=== PATIENT | male | born 1980 | race Caucasian/White ===

== ENCOUNTER 2025-05-09 18:48 | Emergency (ER) | payer BC, SELFPAY ==
[2025-05-09 18:50] VITALS: BP 148/96
[2025-05-09 19:09] LABS: Hematocrit 38.6 % (39.0-52.0); Hemoglobin 13.4 g/dL (13.0-18.0); Mean Corp Hgb Conc. 34.7 g/dL (33.0-37.0); Mean Corpuscular Volume 88.9 fL (80.0-94.0); Nucleated Red Blood Cells % 0 % (-); Platelet Count 289 10^3/uL (130-400); Red Cell Dist. Width 12.1 % (11.5-14.5)
[2025-05-09 19:31] LABS: Lipase 117 U/L (23-300)
[2025-05-09 19:32] LABS: ALT (SGPT) 35 U/L (0-50); AST (SGOT) 27 U/L (17-59); Albumin 4.7 g/dl (3.5-5.0); Alkaline Phosphatase 97 U/L (38-126); Blood Urea Nitrogen 20 mg/dl (9-20); Calcium 9.4 mg/dl (8.4-10.2); Carbon Dioxide 27 mmol/L (22-30); Chloride 104 mmol/L (98-107); Glucose 135 mg/dl (70-99); Potassium 4.4 mmol/L (3.5-5.1); Sodium 139 mmol/L (135-145); Total Protein 7.6 g/dl (6.3-8.2); eGFR > 60.00
--- NOTE | 2025-05-09 22:02 | ED.GENMED ---
History of Present Illness
General
Chief Complaint: Abdominal Pain
Source: patient
Exam Limitations: none
Time Seen by Provider: 05/09/25 21:43
History of Present Illness
History of Present Illness:
44yoM with a history of hypertension and seizure disorder presenting for evaluation of abdominal pain. Patient drank soda and ate 2 pieces of pizza last night around 5 PM. He started to experience abdominal discomfort afterwards. He reports
abdominal distention throughout and feels 'like I am about to pop.' He has pain primarily in the center of his abdomen. He is having a hard time belching. No prior history of similar issues in the past. He had a bowel movement earlier today
which was normal. He denies any vomiting, diarrhea, difficulty urinating, chest pain, shortness of breath. No prior abdominal surgeries.
Past History
Past History
ED Past Medical History: Seizures
Phy Exam
General Physical Exam
General Presentation: well appearing and no apparent distress
General Skin: warm and dry
General Habitus: normal
General Mental: alert
ENT Exam
ENT Exam: normocephalic
Pulmonary Exam
Pulmonary Exam: no respiratory distress
Gastrointestinal Exam
Gastrointestinal Exam: soft, tender and other (Abdomen appears mildly distended. Mild tenderness in periumbilical region. No palpable hernia. No rebound or guarding.)
Neurological Exam
Neurological Exam: alert
[place] Coma Scale
Eye Opening: Spontaneous
Verbal Response: Oriented
Motor Response: Obeys Commands
GCS Total Score: 15
Skin Exam
Skin Exam: normal color and warm/dry
Psychiatric Exam
Psychiatric Exam: normal mood/affect
Course
Orders/Labs/Results
Orders:
Orders
05/09/25 19:01
Complete Blood Count/With Diff Urgent
Comprehensive Metabolic Panel Urgent
Lipase Urgent
05/09/25 21:43
Electrocardiogram (*1) Urgent
Reason for Study: Abdominal Pain
05/09/25 22:00
CT Abd/pelvis W Iv Cont Urgent
Comment:
Reason For Exam: abd distention, periumbilical pain
Abnormal Lab Results
05/09/25
19:01
RBC 4.34 L 10^6/uL
(4.70-6.10)
Hct 38.6 L %
(39.0-52.0)
Glucose 135 H mg/dl
(70-99)
05/09/25 19:01
05/09/25 19:01
Vital Signs
Initial and Last Documented VS:
Initial Vital Signs
Temp Pulse Resp BP Pulse Ox
98.1 F 89 18 148/96 94
05/09/25 18:50 05/09/25 18:50 05/09/25 18:50 05/09/25 18:50 05/09/25 18:50
Last Documented Vital Signs
Temp Pulse Resp BP Pulse Ox
98.1 F 89 18 148/96 94
05/09/25 18:50 05/09/25 18:50 05/09/25 18:50 05/09/25 18:50 05/09/25 22:03
MDM/Problems Addressed
Differential Diagnosis Includes:
44yoM here with abdominal discomfort and bloating that started yesterday after eating pizza. Normal BM earlier today. No vomiting. He is mildly hypertensive but otherwise stable vital signs. He is well-appearing in no acute distress. Abdomen
appears mildly distended. No signs of peritonitis. Differential diagnosis includes but is not limited to: Bowel obstruction, constipation, gas, consider early appendicitis
Initial ED plan: Labs obtained in triage which are unremarkable including normal white count, renal function, and LFTs. Will check CT abdomen.
*Pulse Oximetry
SaO2: 94
Oxygen Mode of Delivery: Room air
Patient hypoxic: no (94%)
*EKG
Interpreted by ED Provider?: Yes
EKG Intrepretation Date: 05/09/25
Heart Rate: 74
Rate: normal
Rhythm: sinus
[place]: normal axis
Interval: normal interval
QRS Pattern: normal QRS
Ischemia: no ischemia
*Critical Care Note
Total Time (30-74mins, 75-104mins- exclusive of procedures): Not Applicable
Update Note
Update Note:
Preliminary [facility]ology report is negative for acute findings. Specifically, there is no evidence of intestinal obstruction or free air and appendix is normal. No indication for hospitalization. Supportive care discussed including
Pepto-Bismol or Gas-X as needed. He was advised to follow-up with his PCP and ED return precautions reviewed. Patient in agreement with plan and was discharged in stable condition.
ED Attending Note
-
Portions of this chart may have been created with voice recognition software.� Occasional wrong word or��sound alike� substitutions may have occurred due to the inherent limitations of voice recognition software.
Discharge Plan
Departure
Patient Disposition: Home (Routine Discharge)
Date of Disposition: 05/10/25
Time of Disposition: 00:49
Patient with high blood pressure during this ER visit?: Yes
Discharge Problem:
Abdominal bloating
Instructions: Abdominal Pain
Prescriptions:
No Action
Zonamine
400 mg PO HS
azithromycin 250 MG tablet
250 mg PO DAILY Qty: 6 0RF
meclizine 25 MG tablet
25 mg PO Q8HPRN PRN (Reason: NAUSE/VERTIGO) Qty: 20 0RF
Referrals:
Hung Pearson MD [Family Provider, Internal Medicine]
Activity Restrictions/Additional Instructions:
Take Pepto-Bismol or Gas-X as needed.
Please follow-up with your family doctor next week. Return to the ER with any new or worsening symptoms.
Interventions
Interventions:
*Risk Screen - Suicide Last Done: 05/09/25 18:50
*General Assessment Last Done: 05/09/25 18:50
*Neglect/Abuse Screening Last Done: 05/09/25 18:50
*ED- Fall Risk Assessment Last Done: 05/09/25 23:01
*ED COVID-19 Vaccine History Last Done: 05/09/25 18:50
*Nursing Disposition Last Done: 05/10/25 01:03
HC-Phhxbo-Zlywvobabt Assessment Last Done: 05/09/25 23:00
Discharge Date and Time
Discharge Date/Time: 05/10/25 01:04
Print Language: YORUBA
== END 2025-05-10 01:04 | disposition home or self-care (01) ==
LOC: EMR 18:48
PROVIDERS: Student in an Organized Health Care Education/Training Program; EMERGENCY PHYSICIAN Emergency Medicine; FAMILY PHYSICIAN Internal Medicine
DX: R14.0 Abdominal distension (gaseous) (principal); I10 Essential (primary) hypertension; G40.909 Epilepsy, unspecified, not intractable, without status epilepticus
CPT/HCPCS: 99284; 74177; 80053; 83690; 85025; 93005; Q9967